=== PATIENT | male | born 1975 | race Caucasian/White ===

== ENCOUNTER → 2016-11-30 | Day surgery (SDC) | payer OTHER ==
[~2016-11-30] MED LIST: FEXO180T81 PO; HYDROmorphone 2 MG/ML VIAL IV PRN; IV RINGERS,LACTATED 1000ML 1,000 ML IV SCH; LIDOCAINE 1% PF 2 ML VIAL. ID PRN; LIDOCAINE 2% PF Vial for OR 5 ML VIAL. ONE; MORPHINE SULFATE 2 MG/ML DISP.SYRIN. IV PRN; OMEP20CA9 PO; ONDANSETRON PF 4 MG/2 ML VIAL. IV PRN; PROCHLORPERAZINE 10 MG/2 ML VIAL. IV PRN; PROPOFOL 20 ML IV ONE; PROPOFOL 40 ML IV ONE; fentaNYL PF VIAL 100 MCG/2 ML VIAL IV PRN
--- NOTE | 2016-11-30 08:13 | PDOC1 ---
HISTORY & PHYSICAL H&P Ty Celis [id number] 1975 11/07/2016 02:30 PM 02/18 Jingit [facility] OUR PATIENTS COM[facility] [address] [place] [address]. [phone] Patient: Ty Celis Date of : 1975 Date: 11/07/2016 2:30 PM Visit Type: Consult This 41 year old male presents for H/o colorectal polyp, Abdominal pain and Dysphagia. History of Present Illness: 1. H/o colorectal polyp Prior screening: colonoscopy. Risk Factors: h/0 colon polyp. Pertinent negatives include abdominal pain, change in bowel habits, change in stool caliber, constipation, decreased appetite, diarrhea, melena, nausea, rectal bleeding, vomiting, weight gain and weight loss. Additional information: No family history of colon cancer, No family history of Crohn's/colitis and No NSAID/ASA use. 2. Abdominal pain Duration is 3 Months. Location is epigastric. The patient describes it as aching, gnawing and sharp. Denies aggravating factors. Denies relieving factors. 3. Dysphagia The symptoms occur with solids and liquids which cause choking and gagging with food sticking in the lower chest. The symptoms are felt to be related to meals. The symptoms are not related to history of stroke. The patient has a history of reflux. There is no history of Fraser's esophagus or stroke. The patient denies aggravating factors. The patient denies relieving factors. The patient is also experiencing choking and food sticking. The patient denies anorexia, bloating, chest pain, decreased appetite, hoarseness, nausea, vomiting, weight gain or weight loss. INTAKE COMMENTS: Intake Comments: Nurse Note: the pt is here today with a H/O of colon polyp in 2010. The pt has complaints of chest pain. PROBLEM LIST: No active problems PAST MEDICAL/SURGICAL HISTORY (Detailed) Disease/disorder Onset Date Management Date Comments Tonsillectomy EGD with dilation 2006 EGD with dilation 2003 Anxiety Colonic polyps-tubulovillous adenoma colonoscopy with polypectomy 02/23/2010 Cricopharangeal disfunction GERD PUD torn menscius knee surgery DIAGNOSTICS HISTORY: Test Ordered Interpretation Result completed EGD 11/24/2008 abnormal gastritis, reflux esophagitis. reactive gastropathy Colonoscopy 02/23/2010 colonic polyp BX: tubulovilious adenoma, recall 2 years- KR 02/23/2010 Test Ordered Ordering Comments Modifier EGD 11/24/2008 Pt received verbal written instructions. [facility] [place] Colonoscopy 02/23/2010 Gastroenterology Medications (Active): Started Medication Directions Instruction Stopped meloxicam take 1 tablet by oral route every day Nexium 24HR 22.3 mg capsule,delayed release omeprazole 20 mg capsule,delayed release take 1 capsule by oral route every day before a meal Allergies: Ingredient Reaction Medication Name Comment NO KNOWN ALLERGIES REVIEW OF SYSTEMS System Neg/Pos Details Constitutional Negative Chills, fever, malaise, weight gain and weight loss. ENMT Negative Hoarseness and sore throat. Eyes Negative Double vision. Respiratory Negative Dyspnea and wheezing. Cardio Negative Chest pain and irregular heartbeat/palpitations. GI Positive Choking, Food sticking, See HPI. GI Negative Abdominal pain, anorexia, bloating, change in bowel habits, change in stool caliber, constipation, decreased appetite, diarrhea, melena, nausea, see HPI, rectal bleeding and vomiting. Negative Dysuria and hematuria. Endocrine Negative Cold intolerance and heat intolerance. Psych Negative Anxiety. Integumentary Negative Hives and rash. MS Negative Joint pain. Rashawn/Lymph Negative Easy bleeding and easy bruising. Allergic/Immuno Negative Food allergies. VITAL SIGNS Time BP mm/Hg Pulse /min Resp /min Temp F Ht ft Ht in Ht cm Wt lb Wt kg BMI kg/ m2 BSA m2 O2 Sat% 2:15 PM 142/80 113 5.0 11.00 180.34 170.80 77.474 23.82 97 Time Measured by 2:15 PM [facility] PHYSICAL EXAM: Exam Findings Details Constitutional Normal Well developed. Eyes Normal Conjunctiva - Right: Normal, Left: Normal. Sclera - Right: Normal, Left: Normal. Nasopharynx Normal Lips/teeth/gums - Normal. Neck Exam Normal Inspection - Normal. Thyroid gland - Normal. Respiratory Normal Inspection - Normal. Auscultation - Normal. Cardiovascular Normal Regular rate and rhythm. No murmurs, gallops, or rubs. Vascular Normal Pulses - Carotids: Normal, Femoral: Normal, Dorsalis pedis: Normal. Abdomen Normal Inspection - Normal. Anterior palpation - No guarding. No abdominal tenderness. No hepatic enlargement. No splenic enlargement. No hernia. No ascites. Skin Normal Inspection - Normal. Extremity Normal No edema. Psychiatric * Oriented to time, place, person and situation. Psychiatric Normal Appropriate mood and effect. Assessment/Plan # Detail Type Description 1. Assessment Dysphagia, unspecified type (R13.10). Patient Plan schedule EGD at Plan Orders Further diagnostic evaluations ordered today include(s) EGD w/ dilation over guidewire to be performed today. 2. Assessment Epigastric pain (R10.13). Patient Plan await EGD result 3. Assessment History of colon polyps (Z86.010). Patient Plan schedule colonoscopy at Plan Orders Further diagnostic evaluations ordered today include(s) Colonoscopy to be performed today. He is to schedule a follow-up visit with Christopher Mesa MD upon completion of work-up Electronically signed by: Christopher Mesa MD 11/07/2016 02:48 PM Document generated by: Christopher Mesa 11/07/2016 02:48 PM Guy Crow MD, [facility]; Mal Muller MD Internal Medicine; Asia Arboleda MD, Internal Medicine; Blu Mesa MD Internal Medicine; Christopher Mesa MD, Gastroenterology; Singh Blair MD, Rheumatology, S. Alberto Michelle, Physical Medicine/Rehab JDalton Tovar APRN ------ 11/30/16 Patient seen and examined. No change in H&P. CHRISTOPHER MESA MD Nov 30, 2016 08:13
[2016-11-30 09:40] VITALS: BP 137/90
== END | disposition home or self-care (01) ==
LOC: ENDOS 07:46
PROVIDERS: ATTEND Internal Medicine Gastroenterology
DX: Z09 Encounter for follow-up examination after completed treatment for conditions other than malignant neoplasm (principal); Z87.19 Personal history of other diseases of the digestive system; K44.9 Diaphragmatic hernia without obstruction or gangrene; F17.200 Nicotine dependence, unspecified, uncomplicated; Z87.39 Personal history of other diseases of the musculoskeletal system and connective tissue
CPT/HCPCS: 43235; 43453; 45378; J2704; J2001